=== PATIENT | male | born 1970 | race Caucasian/White ===

== ENCOUNTER 2019-02-11 05:54 | Day surgery (SDC) | payer BC ==
[2019-02-11] MEDS ORDERED: Acetaminophen 500 MG Tab PO ONE (06:15)
[2019-02-11] MEDS ORDERED: Midazolam 1 MG/ML 2 ML SDV ONE (06:25)
[2019-02-11] MEDS ORDERED: fentaNYL 250 MCG/5 ML SDV ONE (06:25)
[2019-02-11] MEDS ORDERED: Ketorolac 60 MG/2 ML SDV ONE (06:27)
[2019-02-11] MEDS ORDERED: Rocuronium 50 MG/5 ML Vial ONE (06:27)
[2019-02-11] MEDS ORDERED: Dexamethasone 4 MG/ML SDV ONE (06:27)
[2019-02-11] MEDS ORDERED: Ondansetron 4 MG/2 ML SDV ONE (06:27)
[2019-02-11] MEDS ORDERED: Propofol 200 MG/20 ML SDV ONE (06:27)
[2019-02-11] MEDS ORDERED: Bupivacaine 0.5%/EPINEPHrine 1:200,000 50 ML MDV ONE (06:42)
[2019-02-11] MEDS: Dextrose 5%-Lactated Ringers 1,000 ML IV SCH ×2 (06:49→12:47)
[2019-02-11] MEDS ORDERED: Albuterol/Ipratropium 3.0-0.5 MG/3 ML Neb Soln NEB ONE (07:00)
[2019-02-11] MEDS ORDERED: Ketamine 500 MG/5 ML MDV IV SCH (07:30)
[2019-02-11] MEDS ORDERED: Ropivacaine 40 ML, dexAMETHasone 8 MG, EPINEPHrine 0.4 MG, Sodium Chloride 0.9% 37.6 ML NERVRT SCH ×4 (07:30)
[2019-02-11] MEDS ORDERED: cefOXitin 2 GM in Sodium Chloride 0.9% 50 ML IV ONE (07:30)
[2019-02-11] MEDS ORDERED: Glycopyrrolate 0.2 MG/ML 5 ML MDV ONE (08:20)
[2019-02-11] MEDS ORDERED: Neostigmine Methylsulfate 1 MG/ML 5 ML Syringe ONE (08:20)
[2019-02-11] MEDS ORDERED: Pantoprazole 40 MG Vial IV SCH (10:30)
[2019-02-11] MEDS ORDERED: HYDROmorphone 0.5 MG/0.5 ML Syringe IVPUSH PRN (10:33)
[2019-02-11] MEDS ORDERED: HYDROmorphone 1 MG/ML Syringe IV PRN (10:33)
[2019-02-11] MEDS ORDERED: Ondansetron 4 MG/2 ML SDV IVPUSH PRN (10:34)
[2019-02-11] MEDS ORDERED: FLU Vacc QS2019-20(6MOS+)/PF 60 MCG/0.5 ML SYRINGE IM ONE (18:00)
[2019-02-11] MEDS: Acetaminophen/HYDROcodone 325-5 MG Tab PO PRN (21:53)
[2019-02-12 08:18] VITALS: BP 122/78; PULSE 96
[2019-02-12] MEDS: Acetaminophen/HYDROcodone 325-5 MG Tab PO PRN (08:37)
--- NOTE | 2019-02-12 10:52 | DISCH ---
FINAL DIAGNOSES: 1. Chronic and subacute cholecystitis . 2. History of asthma. 3. Umbilical hernia. OPERATIVE PROCEDURES: Diagnostic laparoscopy with, 1. Cholecystectomy. 2. Umbilical hernia repair. This was done on 02/11/2019. HOSPITAL COURSE: This is a 48-year-old male presenting with ongoing abdominal discomfort. The patient underwent a CCK-stimulated HIDA scan on Wednesday, i.e., 2 days ago, which showed ejection fraction of only 4%, and the CCK injection caused reproduction of his pain. Therefore, he was scheduled for a cholecystectomy, which was then done on 02/12/2019. The patient concurrently had an umbilical hernia, which was repaired as well. The patient had more of a subacute pattern in terms of his cholecystitis, grossly with the gallbladder being quite edematous and thick-walled. It contained a single stone, which was given to the patient. Postoperatively, he has done well. Labs look good. This morning, he was eating satisfactorily. Taking minimal [place] for pain. He will be discharged home. Follow up will be with Dr. Graf at [facility] on 02/22/2019. Medications will be continued of home medications plus [place] 5/325 one or two tabs q.4 hours p.r.n. pain, #20.
--- NOTE | 2019-02-24 12:55 | OR ---
DATE OF PROCEDURE: 02/07/2019 SURGEON: Raj Graf MD PREOPERATIVE DIAGNOSIS: Biliary dyskinesia. POSTOPERATIVE DIAGNOSES: 1. Biliary dyskinesia associated with chronic and subacute cholecystitis and cholelithiasis. 2. Umbilical hernia. OPERATIVE PROCEDURE: Diagnostic laparoscopy with: 1. Cholecystectomy (01602). 2. Umbilical hernia repair (70036). ANESTHESIA: General. INDICATION FOR PROCEDURE: This is a 48-year-old male presenting with recurrent episodes of biliary colic-type pain. He had CCK-stimulated HIDA scan done yesterday, which had only 4% ejection fraction and the CCK injection did cause reproduction of his pain symptoms. Plan, therefore, is to proceed with laparoscopic cholecystectomy. Potential risks of the procedure including bleeding, infection, injury to underlying viscera, possibility the stones may migrate into the common bile duct requiring additional procedures for correction, as well as possibility of incomplete relief of symptoms were all gone over, and the patient wishes to proceed. DETAILS OF PROCEDURE: The patient was taken to the operating room. After general endotracheal anesthesia was induced, the abdomen was prepped and draped. A transverse epigastric incision was made, and the peritoneal cavity entered under direct vision with an Optiview trocar and inflated to 15 mmHg pressure of CO2. Laparoscope was re-inserted. No underlying trocar insertion site injuries were seen. Following this, a 12 mm subumbilical trocar was placed. Upon initial incision and inspection, the patient was noted have roughly 8 mm umbilical hernia. The trocar was brought through the center of the hernia and 1 additional 5 mm trocar was then placed in the right subcostal area. The patient's gallbladder was noted to be quite thickened and edematous consistent with a subacute cholecystitis. The gallbladder was retracted anteriorly and laterally and dissection began at the gallbladder neck with Harmonic scalpel, continued around the gallbladder neck and cystic duct junction. Once that area was well delineated as was the adjacent cystic artery, both structures were clipped 3 times proximally, once distally, and then divided. The gallbladder was then dissected off the gallbladder bed using Harmonic scalpel and delivered through the epigastric trocar site. The patient was noted to have a single roughly a pea-sized stone which appeared to have been lodged in the gallbladder neck. This was given to the patient postoperatively. The area of dissection was inspected. No bleeding or bile leaks were seen. A drain was felt not to be necessary. The camera was then brought back up to the epigastric site, and the trocar was removed at the umbilical hernia location. Using laparoscopic suture passer, 0 Vicryl sutures were placed with a row of 4 sutures closing the umbilical hernia with a transverse orientation. Once the sutures had then placed, the trocars were removed and peritoneal cavity deflated. The fascia at the epigastric site was closed with single 0 Vicryl stitch and after tying the umbilical hernia sutures, all incisions were closed with 4- 0 Vicryl skin stitch and a dressing applied. After initial entrance into the abdomen, bilateral subcostal transversus abdominis plane blocks were then placed under direct vision, and the incision was then also anesthetized with 0.5% [place]. The patient was taken to the recovery room in satisfactory condition. Raj Graf MD Job #: [id number]
== END 2019-02-12 08:50 ==
LOC: JP.SDS 05:54 → JP.MS 09:15 → JP.SDS 02-12 08:50
PROVIDERS: ATTEND Surgery
DX: K80.12 Calculus of gallbladder with acute and chronic cholecystitis without obstruction (principal); K42.9 Umbilical hernia without obstruction or gangrene; E78.5 Hyperlipidemia, unspecified; J45.909 Unspecified asthma, uncomplicated; Z23 Encounter for immunization; Z79.899 Other long term (current) drug therapy
CPT/HCPCS: 36415; 47562; 82247; 84075; 85027; 88304; 90471; 90686; 94640; A9270; C9113; J0171; J0694; J1100; J1885; J2250; J2405; J2704; J2795; J3010; J3490; J7042; J7050; G0008; J2710; J7620-GY